=== PATIENT | male | born 1965 | race Caucasian/White ===

== ENCOUNTER → 2020-10-13 18:45 | Outpatient (CLI) | payer OTHER, SELFPAY ==
[2020-10-13 20:10] LABS: COVID19 -Nasal RAPID Negative (Negative)
== END ==
PROVIDERS: PCP Family Medicine; Visit Provider Physician Assistant
DX: J32.9 Chronic sinusitis, unspecified (principal); Z20.822 Contact with and (suspected) exposure to COVID-19
CPT/HCPCS: 87635

== ENCOUNTER → 2020-12-31 08:42 | Outpatient (CLI) | payer OTHER, SELFPAY ==
[2020-12-31 09:33] LABS: Add Manual Diff / Slide Review NO; Basophils Absolute Auto 0 /uL (0-100); Basophils Percent Auto 0.4 % (0-2); Eosinophils Absolute Auto 200 /uL (0-450); Eosinophils Percent Auto 2.6 % (2-4); Hematocrit 48.3 % (41-53); Hemoglobin 16.3 g/dL (13.5-17.5); Lymphocytes Absolute Auto 1900 /uL (1100-4500); Lymphocytes Percent Auto 29.3 % (25-40); Mean Corpuscular HGB Conc 33.8 % (30-36); Mean Corpuscular Hemoglobin 30.8 PG (26-34); Mean Corpuscular Volume 91.1 fL (80-100); Monocytes Absolute Auto 600 /uL (0-900); Monocytes Percent Auto 9.4 % (3-14); Neutrophils Absolute Auto 3800 /uL (1500-7000); Neutrophils Percent Auto 58.3 % (50-75); Platelet Count 232 X10^3/uL (150-400); Red Cell Distribution Width 12.5 % (11.6-14.8); White Blood Cell Count 6.5 X10^3/uL (4.5-11.0)
[2020-12-31 10:01] LABS: Alanine Aminotransferase 44 IU/L (<50); Albumin 4.6 g/dL (3.5-5.0); Albumin Globulin Ratio 1.3 (1.0-2.8); Alkaline Phosphatase 73 U/L (38-126); Aspartate Aminotransferase 40 IU/L (17-59); BUN Creatinine Ratio 22.5 (6-22); Blood Urea Nitrogen 16 mg/dL (9-20); Calcium 9.9 mg/dL (8.4-10.2); Carbon Dioxide 32 mmol/L (22-32); Chloride 101 mmol/L (98-107); Cholesterol 181 mg/dL (140-199); Estimated Glomerular Filt Rate > 60.0 mL/min (>60); Globulin 3.5 g/dL (1.7-4.1); Glucose 104 mg/dL (70-100); HDL Cholesterol 58 mg/dL (40-60); HEMOLYSIS 19 (0-50); Hemoglobin A1C% w Est Avg Glu 5.3 % (4.0-6.0); LDL Cholesterol Calculated 108 mg/dL (<100); Potassium 3.8 mmol/L (3.4-5.1); Sodium 139 mmol/L (137-145); Total Protein 8.1 g/dL (6.3-8.2); Triglycerides 74 mg/dL (35-150)
[2020-12-31 10:14] LABS: Creatinine Urine Random 195.8 mg/dL
[2020-12-31 10:19] LABS: Microalbumi Creatinin Ratio Ur 7.6 ug/mg CR (<30); Microalbumin Urine Random 1.5 mg/dL (0-1.6)
== END ==
PROVIDERS: PCP Family Medicine; Referring Provider Family Medicine; Visit Provider Family Medicine
DX: I10 Essential (primary) hypertension (principal); M26.609 Unspecified temporomandibular joint disorder, unspecified side; M48.00 Spinal stenosis, site unspecified
CPT/HCPCS: 36415; 80053; 80061; 82043; 82570; 83036; 85025

== ENCOUNTER → 2021-01-28 14:25 | Outpatient (CLI) | payer OTHER, SELFPAY ==
[2021-01-28 15:37] LABS: Prostate Specific Antigen Scrn 1.37 ng/mL (0.1-4.0)
== END ==
PROVIDERS: PCP Family Medicine; Referring Provider Family Medicine; Visit Provider Family Medicine
DX: Z12.5 Encounter for screening for malignant neoplasm of prostate (principal)
CPT/HCPCS: 36415; G0103

== ENCOUNTER → 2021-08-12 08:38 | Outpatient (CLI) | payer OTHER, SELFPAY ==
--- NOTE | 2021-08-12 08:40 | DI.US.S_ITS ---
PROCEDURE: US SCROTUM INDICATIONS: TESTICULAR PAIN TECHNIQUE: Real-time scanning was performed of the scrotum and testicles, with image documentation. Color and pulse Doppler interrogation was performed of both testicles. COMPARISON: None. FINDINGS: Right: Testicle is normal in size at 4.2 x 2.9 x 3.5 cm, and homogenous in echotexture. Epididymis is normal in overall size and morphology. There is a small right-sided hydrocele. Overlying scrotal skin is normal in thickness. Left: Testicle is normal in size at 4.2 x 2.3 x 3 cm, and homogeneous in echotexture. Epididymis is normal in overall size and morphology. There is a small to moderate left-sided hydrocele. Overlying scrotal skin is normal in thickness. Doppler: Color and pulse Doppler demonstrate normal and symmetric arterial flow in both testicles. No varicoceles are seen. IMPRESSION: Normal appearing testicles, without masses. Normal appearing, symmetric testicular vascularity. Bilateral hydroceles are seen, left larger than right. Dictated by: Chris Friedman M.D. on 08/12/2021 at 8:34 Approved by: Chris Friedman M.D. on 08/12/2021 at 8:35
[2021-08-12 10:06] LABS: Appearance Urine UA CLEAR; Bilirubin Urine UA NEGATIVE (NEGATIVE); Color Urine UA YELLOW; Glucose Urine UA NEGATIVE (Negative); Ketones Urine UA NEGATIVE (NEGATIVE); Leukocyte Esterase Urine UA NEGATIVE (NEGATIVE); Nitrite Urine UA NEGATIVE (Negative); Occult Blood Urine UA NEGATIVE (Negative); Protein Urine UA NEGATIVE (Negative); Specific Gravity Urine UA 1.015 (1.000-1.035); Urobilinogen Urine UA 0.2 E.U./dL (0.2)
[2021-08-12 10:12] LABS: Bacteria Urine None Seen; Culture Indicated Urine Cult Not Indicated; RBC Urine None Seen (0-5/HPF); Urine Comments Microscopic Normal; WBC Urine None Seen (0-5/HPF)
== END ==
PROVIDERS: PCP Family Medicine; Referring Provider Family Medicine; Visit Provider Family Medicine
DX: N50.819 Testicular pain, unspecified (principal); N43.3 Hydrocele, unspecified
CPT/HCPCS: 76870; 81001

== ENCOUNTER → 2021-08-19 07:15 | Outpatient (CLI) | payer OTHER, SELFPAY ==
--- NOTE | 2021-08-19 07:16 | DI.MRI.S_ITS ---
PROCEDURE: MR LUMBAR SPINE WO CON INDICATIONS: Chronic low back pain not improved with physical therapy TECHNIQUE: Noncontrast sagittal T1 spin echo and T2 fast echo, sagittal STIR, axial T1 and T2 fast spin echo through the lumbar spine. In cases with scoliosis, additional coronal T2 fast spin echo may be performed. COMPARISON: None. FINDINGS: Image quality: Excellent. Alignment and Curvature: There is grade 1 retrolisthesis of L5 on S1 measuring 3 mm. Bone Marrow: Marrow is of normal overall signal. Moderate to severe reactive endplate changes are present at L5-S1. There is mild appearance of increased signal in the distal aspect of the spinous process at L3 and proximal aspect of the spinous process at L2. No acute vertebral body compression fractures. Spinal Cord: Conus medullaris terminates at the L1-2 level. Visualized cord demonstrates normal signal and size. Paraspinous Soft Tissues: No paravertebral masses. Discs: Severe desiccation is present L5-S1, minimal L4-5. L1-L2: No disc bulge, spinal stenosis or foraminal narrowing. L2-L3: No disc bulge, spinal stenosis or foraminal narrowing. Minimal facet and ligamentum flavum hypertrophy. Minimal epidural lipomatosis. L3-L4: Minimal disc bulge without spinal stenosis minimal bilateral foraminal narrowing with facet and ligamentum flavum hypertrophy. L4-L5: Minimal disc bulge without spinal stenosis. Minimal left foraminal narrowing with facet and ligamentum flavum hypertrophy. L5-S1: Mild disc bulge with posterior central protrusion causing indentation of the anterior thecal sac. There is moderate left and moderate to severe right foraminal narrowing with facet and ligamentum flavum hypertrophy. IMPRESSION: Multilevel disc bulges most prominent L5-S1 with posterior central protrusion. Overall minimal to mild foraminal narrowing with most prominent foraminal narrowing, moderate to severe at L5-S1. This is secondary to facet arthropathy with contributing effect of retrolisthesis. Increased signal within the spinous process at L2 and L3. This may represent area of inflammation. However, it is overall nonspecific on the basis of this exam. Further evaluation with bone scan or lumbar spine with contrast is recommended. Dictated by: Karen Pendleton M.D. on 08/19/2021 at 8:53 Approved by: Karen Pendleton M.D. on 08/19/2021 at 9:00
== END ==
PROVIDERS: PCP Family Medicine; Referring Provider Family Medicine; Visit Provider Family Medicine
DX: M51.27 Other intervertebral disc displacement, lumbosacral region (principal); M48.07 Spinal stenosis, lumbosacral region; M47.817 Spondylosis without myelopathy or radiculopathy, lumbosacral region; G89.29 Other chronic pain
CPT/HCPCS: 72148

== ENCOUNTER → 2021-09-01 09:11 | Outpatient (CLI) | payer OTHER, SELFPAY ==
--- NOTE | 2021-09-01 09:12 | DI.NM.S_ITS ---
PROCEDURE: NM BONE SPECT RADIOPHARMACEUTICAL: 20.2 mCi Tc-99m MDP IV. INDICATIONS: increased signal on L2/L3 spinous process TECHNIQUE: Delayed bone scintigrams were obtained of the region of interest 3-4 hours after intravenous administration of Tc-99m MDP. Additional tomographic (SPECT) imaging was performed and displayed in axial, coronal, and sagittal planes. COMPARISON: [facility], MR, MR LUMBAR SPINE WO CON, 08/19/2021, 7:33. FINDINGS: No abnormal uptake in the L2-L3 spinous process area. There is increased activity at L5-S1, correlating with MRI finding of degenerative disc disease. IMPRESSION: 1. No scintigraphic abnormality in the area of the L2-L3 spinous process. 2. Severe degenerative disc disease at L5-S1. Dictated by: Shania Castillo M.D. on 09/01/2021 at 16:21 Approved by: Shania Castillo M.D. on 09/01/2021 at 16:29
== END ==
PROVIDERS: PCP Family Medicine; Referring Provider Family Medicine; Visit Provider Family Medicine
DX: M51.37 Other intervertebral disc degeneration, lumbosacral region (principal); R93.7 Abnormal findings on diagnostic imaging of other parts of musculoskeletal system; M54.50 Low back pain, unspecified; G89.29 Other chronic pain
CPT/HCPCS: 78305; A9503

== ENCOUNTER → 2022-12-22 08:16 | Outpatient (CLI) | payer OTHER, SELFPAY ==
[2022-12-22 08:44] LABS: Add Manual Diff / Slide Review NO; Basophils Absolute Auto 0 /uL (0-100); Basophils Percent Auto 0.5 % (0-2); Eosinophils Absolute Auto 100 /uL (0-450); Eosinophils Percent Auto 2.5 % (2-4); Hematocrit 45.3 % (41-53); Hemoglobin 15.6 g/dL (13.5-17.5); Lymphocytes Absolute Auto 1600 /uL (1100-4500); Lymphocytes Percent Auto 31.4 % (25-40); Mean Corpuscular HGB Conc 34.5 % (30-36); Mean Corpuscular Volume 89.8 fL (80-100); Monocytes Absolute Auto 500 /uL (0-900); Neutrophils Absolute Auto 3000 /uL (1500-7000); Neutrophils Percent Auto 56.6 % (50-75); Platelet Count 234 X10^3/uL (150-400); Red Blood Cell Count 5.04 X10^6/uL (4.5-5.9); Red Cell Distribution Width 12.8 % (11.6-14.8); White Blood Cell Count 5.3 X10^3/uL (4.5-11.0)
[2022-12-22 09:33] LABS: Alanine Aminotransferase 41 IU/L (<50); Albumin 4.3 g/dL (3.5-5.0); Albumin Globulin Ratio 1.5 (1.0-2.8); Alkaline Phosphatase 76 U/L (38-126); Aspartate Aminotransferase 34 IU/L (17-59); BUN Creatinine Ratio 24.1 (6-22); Bilirubin Total 0.7 mg/dL (0.2-1.3); Blood Urea Nitrogen 19 mg/dL (9-20); Calcium 9.4 mg/dL (8.4-10.2); Carbon Dioxide 29 mmol/L (22-32); Chloride 102 mmol/L (98-107); Cholesterol 173 mg/dL (140-199); Estimated Glomerular Filt Rate > 60 mL/min (>60); Globulin 2.8 g/dL (1.7-4.1); Glucose 97 mg/dL (70-100); HDL Cholesterol 57 mg/dL (40-60); HEMOLYSIS < 15 (0-50); LDL Cholesterol Calculated 102 mg/dL (<100); Potassium 4.3 mmol/L (3.4-5.1); Sodium 139 mmol/L (137-145); Total Protein 7.1 g/dL (6.3-8.2); Triglycerides 68 mg/dL (35-150)
[2022-12-22 09:51] LABS: TSH w/ Reflex to FT4 1.37 uIU/mL (0.47-4.68)
[2022-12-22 09:51] LABS: Creatinine Urine Random 187.3 mg/dL
[2022-12-22 09:56] LABS: Microalbumi Creatinin Ratio Ur 3.7 ug/mg CR (<30); Microalbumin Urine Random 0.7 mg/dL (0-1.6)
[2022-12-22 10:00] LABS: Prostate Specific Antigen Scrn 1.88 ng/mL (0.1-4.0)
== END ==
PROVIDERS: PCP Family Medicine; Referring Provider Family Medicine; Visit Provider Family Medicine
DX: E78.2 Mixed hyperlipidemia (principal); I10 Essential (primary) hypertension; Z12.5 Encounter for screening for malignant neoplasm of prostate
CPT/HCPCS: 36415; 80053; 80061; 82043; 82570; 84443; 85025; G0103

== ENCOUNTER 2023-06-15 08:17 | Day surgery (SDC) | payer OTHER, SELFPAY ==
[2023-06-15 08:37] VITALS: BP 139/89; PULSE 61; RESP 17; TEMP 36.1; O2SAT 99; BMI 16.5
--- NOTE | 2023-06-15 09:10 | P.HP_ITS ---
History of Present Illness History of Present Illness Date Patient Seen: 06/15/23 Time Patient Seen: 09:14 Chief complaint: Screening Colonoscopy Narrative: Colon cancer screening, last scope 5 yrs due to h/o colon polyps [facility] Medical History Diverticulitis Spondylolisthesis, lumbar region Spinal stenosis, lumbar Chronic low back pain Hydrocele in adult Hyperlipidemia Spinal stenosis (~1999) Tinnitus (~2017) Colon polyps (~2009) Hypertension (~1999) TMJ dysfunction Sinusitis Surgical History Anesthesia History of tonsillectomy (~1976) Family History Father Hyperlipidemia Hypertension Depression Mother Hyperlipidemia Hypertension Stroke Brother Depression Sister Depression Migraines Grandfather Diabetes mellitus Grandmother Stroke Social History household members: spouse Smoking Status: Never smoker alcohol intake: current Meds Home Medications and Allergies Home Medications Medication Instructions Recorded Confirmed Type duloxetine 20 mg capsule,delayed 20 mg PO DAILY #90 caps 08/17/22 06/15/23 Rx release (Cymbalta) loratadine 10 mg tablet (Claritin) 10 mg PO DAILY 12/29/22 06/15/23 History atorvastatin 10 mg tablet 10 mg PO DAILY #90 tabs 01/04/23 06/15/23 Rx hydrochlorothiazide 25 mg tablet 25 mg PO DAILY #90 tabs 02/26/23 06/15/23 Rx amlodipine 5 mg tablet 5 mg PO DAILY #90 tabs 05/01/23 06/15/23 Rx Allergies Allergy/AdvReac Type Severity Reaction Status Date / Time codeine Allergy Nausea Verified 06/15/23 08:35 erythromycin base Allergy Verified 06/15/23 08:35 Review of Systems Review of Systems ROS: Yes All systems reviewed with the patient and are negative except as otherwise documented Exam Vital Signs (past 8 hours): - 06/15/23 08:37 Temperature 96.9 F L Pulse Rate 61 Respiratory Rate 17 Blood Pressure 139/89 Pulse Oximetry 99 Oxygen Delivery Method Room Air Oxygen Delivery Method Room Air Const General: cooperative and healthy appearing Nutritional Appearance: average body habitus HENMT Head: normocephalic and atraumatic Eyes General: appearance normal, both eyes and all related structures Neck Neck: trachea midline Chest Chest: normal inspection of the chest and normal palpation of entire chest wall Resp Effort & Inspection: normal respiratory effort and able to speak in complete sentences Cardio Rate: regular rate Rhythm: regular rhythm Skin General: elasticity normal Neuro General: patient alert, patient awake and patient oriented x3 Cognition: normal cognition Extrem General: normal to inspection Psych Mental Status: mental status grossly normal Judgment: judgment good Assessment & Plan Assessment & Plan narrative: History of colon polyps Plan: Colonoscopy with anesthesia Time Spent With Patient Time with patient: less than 30 minutes
--- NOTE | 2023-06-15 09:10 | PM.OP.COLON ---
Operative Date/Time/Diagnoses Date of procedure: 06/15/23 Time of procedure: 09:38 Pre-op diagnosis: History of colon polyps Post-op diagnosis: same Procedure & Clinicians Study performed: Colonoscopy with anesthesia Same procedure as scheduled: Yes Indications: History of colon polyps Surgeon: Court Garay Procedure Notes Procedure in detail: Preop diagnosis: History of colon polyps Postop diagnosis: Same Operative procedure: Colonoscopy with anesthesia Surgeon: Kaitlin Garay MD Findings: Normal colonoscopy. No polyps, no diverticulosis Procedure: Patient placed in the lateral position. Rectal exam performed showing normal tone no masses. Colonoscope inserted into the rectum and advanced to ileocecal valve with minimal difficulty. Insufflation extraction scope and the above findings. Retroflex was included in the rectum. Impression: Normal colon. No polyps Plan repeat colonoscopy in 5 years due to his history of colon polyps Specimen(s): none sent Complications: none Post-procedure Recommendations: Colonoscopy in 5 years Follow up: as needed Disposition: PACU
[2023-06-15] MEDS: LACTATED RINGERS 1,000 ML 42 ML IV (09:29)
[2023-06-15 09:41] VITALS: BP 102/61; PULSE 60; RESP 16; TEMP 36.2; O2SAT 94
[2023-06-15 09:46] VITALS: BP 91/57; PULSE 56; RESP 16; O2SAT 95
[2023-06-15 09:51] VITALS: BP 103/72; PULSE 58; RESP 18; TEMP 36.2; O2SAT 94
[2023-06-15 09:56] VITALS: BP 105/72; PULSE 60; RESP 16; TEMP 36.2; O2SAT 99
== END 2023-06-15 10:05 | disposition home or self-care (01) ==
PROVIDERS: PCP Family Medicine; Referring Provider Surgery; Visit Provider Surgery
PROC: 0DJD8ZZ Inspection of Lower Intestinal Tract, Via Natural or Artificial Opening Endoscopic (ICD-10-PCS; CPT 45378; principal; 2023-06-15 09:15)
DX: Z12.11 Encounter for screening for malignant neoplasm of colon (principal); Z86.010 Personal history of colon polyps
CPT/HCPCS: 45378

== ENCOUNTER → 2024-03-25 08:12 | Outpatient (CLI) | payer OTHER, SELFPAY ==
[2024-03-25 08:53] LABS: Add Manual Diff / Slide Review NO; Basophils Absolute Auto 0 /uL (0-100); Basophils Percent Auto 0.6 % (0-2); Eosinophils Absolute Auto 100 /uL (0-450); Eosinophils Percent Auto 2.3 % (2-4); Hematocrit 46.3 % (41-53); Hemoglobin 15.8 g/dL (13.5-17.5); Lymphocytes Absolute Auto 1600 /uL (1100-4500); Lymphocytes Percent Auto 25.5 % (25-40); Mean Corpuscular HGB Conc 34.2 % (30-36); Mean Corpuscular Hemoglobin 31.1 PG (26-34); Mean Corpuscular Volume 90.8 fL (80-100); Monocytes Absolute Auto 500 /uL (0-900); Monocytes Percent Auto 7.8 % (3-14); Neutrophils Absolute Auto 4000 /uL (1500-7000); Neutrophils Percent Auto 63.8 % (50-75); Platelet Count 216 X10^3/uL (150-400); Red Cell Distribution Width 12.5 % (11.6-14.8); White Blood Cell Count 6.3 X10^3/uL (4.5-11.0)
[2024-03-25 09:12] LABS: Alanine Aminotransferase 33 IU/L (<50); Albumin 4.2 g/dL (3.5-5.0); Albumin Globulin Ratio 1.7 (1.0-2.8); Alkaline Phosphatase 70 U/L (38-126); Aspartate Aminotransferase 31 IU/L (17-59); BUN Creatinine Ratio 22.5 (6-22); Blood Urea Nitrogen 18 mg/dL (9-20); Calcium 9.5 mg/dL (8.4-10.2); Carbon Dioxide 30 mmol/L (22-32); Chloride 103 mmol/L (98-107); Cholesterol 151 mg/dL (140-199); Estimated Glomerular Filt Rate > 60 mL/min (>60); Globulin 2.5 g/dL (1.7-4.1); Glucose 100 mg/dL (70-100); HDL Cholesterol 54 mg/dL (40-60); HEMOLYSIS < 15 (0-50); LDL Cholesterol Calculated 84 mg/dL (<100); Potassium 4.2 mmol/L (3.4-5.1); Sodium 140 mmol/L (137-145); Total Protein 6.7 g/dL (6.3-8.2); Triglycerides 65 mg/dL (35-150)
[2024-03-25 09:38] LABS: Prostate Specific Antigen 1.34 ng/mL (0.10-4.00)
== END ==
PROVIDERS: PCP Family Medicine; Referring Provider Family Medicine; Visit Provider Family Medicine
DX: E78.2 Mixed hyperlipidemia (principal); I10 Essential (primary) hypertension; Z12.5 Encounter for screening for malignant neoplasm of prostate; J32.9 Chronic sinusitis, unspecified
CPT/HCPCS: 36415; 80053; 80061; 84153; 85025

== ENCOUNTER → 2024-04-09 09:16 | Outpatient (CLI) | payer OTHER, SELFPAY ==
--- NOTE | 2024-04-09 09:17 | DI.RAD.S_ITS ---
PROCEDURE: XR LUMBAR SPINE MIN 4V INDICATIONS: BACK PAIN TECHNIQUE: 5 views of the lumbar spine were acquired, including bilateral oblique views. COMPARISON: None. FINDINGS: Bones: 5 nonrib-bearing vertebrae are present. Slight rightward curvature of the spine, centered at L3. No vertebral body compression fractures. No suspicious bony lesions. Moderate disc height loss at L5-S1. Mild disc height loss at remaining levels. Opposing endplate sclerosis at L5-S1. Facet arthrosis L4-5 and L5-S1. Soft tissues: Overlying bowel gas pattern is normal. No suspicious soft tissue calcifications. Oblique images: No pars defects. IMPRESSION: Mild to moderate, multilevel degenerative disc disease and lower lumbar facet arthrosis. Dictated by: Neo Weaver M.D. on 04/09/2024 at 10:41 Approved by: Neo Weaver M.D. on 04/09/2024 at 10:43
--- NOTE | 2024-04-09 09:17 | DI.RAD.S_ITS ---
PROCEDURE: XR HIP W PEL IF DONE STEPHIE MIN 4V INDICATIONS: LEFT HIP PAIN TECHNIQUE: AP pelvis with lateral view(s) of the both hip(s). COMPARISON: None. FINDINGS: Bones: No fractures or dislocations. Pelvic ring appears intact. No suspicious bony lesions. Nonuniform joint space narrowing and osteophytic lipping of the acetabuli. Soft tissues: The visualized bowel gas pattern is normal. No suspicious soft tissue calcifications. Vasectomy clips. IMPRESSION: Mild bilateral hip osteoarthritis. Dictated by: Neo Weaver M.D. on 04/09/2024 at 10:43 Approved by: Neo Weaver M.D. on 04/09/2024 at 10:43
--- NOTE | 2024-04-09 09:17 | DI.RAD.S_ITS ---
PROCEDURE: XR CERVICAL SPINE 4V OR 5V INDICATIONS: NECK PAIN TECHNIQUE: 5 views of the cervical spine acquired. COMPARISON: None. FINDINGS: Bones: No fractures or dislocations to the T1 level. Oblique images demonstrate no bony foraminal stenoses. Moderate disc height loss at C4-5, C5-6, C6-7. Reversal of the normal cervical lordosis. Diffuse facet arthrosis. Mild neural foraminal narrowing of the bilateral C4-5, C5-6, C6-7 vertebral bodies. Soft tissues: No prevertebral soft tissue swelling. IMPRESSION: Mild to moderate, multilevel degenerative disc disease and diffuse facet arthrosis. Dictated by: Neo Weaver M.D. on 04/09/2024 at 10:45 Approved by: Neo Weaver M.D. on 04/09/2024 at 10:46
== END ==
PROVIDERS: PCP Family Medicine; Referring Provider Physical Medicine & Rehabilitation; Visit Provider Physical Medicine & Rehabilitation
DX: M50.321 Other cervical disc degeneration at C4-C5 level (principal); M48.02 Spinal stenosis, cervical region; M47.812 Spondylosis without myelopathy or radiculopathy, cervical region; M16.0 Bilateral primary osteoarthritis of hip; M47.816 Spondylosis without myelopathy or radiculopathy, lumbar region; M47.817 Spondylosis without myelopathy or radiculopathy, lumbosacral region; M51.36 Other intervertebral disc degeneration, lumbar region; M51.37 Other intervertebral disc degeneration, lumbosacral region; M43.16 Spondylolisthesis, lumbar region; M48.061 Spinal stenosis, lumbar region without neurogenic claudication; M54.2 Cervicalgia; M25.552 Pain in left hip
CPT/HCPCS: 72050; 72110; 73522

== ENCOUNTER → 2024-04-28 08:45 | Outpatient (CLI) | payer OTHER, SELFPAY ==
--- NOTE | 2024-04-28 08:46 | DI.MRI.S_ITS ---
PROCEDURE: MR THORACIC SPINE WO CON INDICATIONS: Thoracic syringomyelia TECHNIQUE: Noncontrast sagittal T1 spine echo and T2 fast spin echo, sagittal STIR, and T2 fast spin echo through the thoracic spine. COMPARISON: [facility], MR, MR LUMBAR SPINE WO CON, 08/19/2021, 7:33. [facility], MR, MR CERVICAL SPINE WO CON, 04/28/2024, 8:50. FINDINGS: Image quality: Excellent. Alignment and Curvature: There is normal bony alignment. Bone Marrow: Marrow is of normal overall signal. No acute vertebral body compression fractures. Spinal Cord: There is prominence of the central canal of the spinal cord seen, which is best demonstrated on series 4, image 8, extending from the superior T4 level through the superior T7 level. This measures up to 3 mm in greatest axial dimension. Visualized spinal cord is otherwise normal in size and signal. Paraspinous Soft Tissues: No paravertebral masses. Miscellaneous: A few levels of mild neural foraminal narrowing can be seen within the mid to lower thoracic spine. No central canal narrowing is seen. IMPRESSION: Prominence of the central canal of the thoracic cord can be seen, which extends from T4 through T7, measuring up to 3 mm in greatest axial dimension. Dictated by: Chris Friedman M.D. on 04/28/2024 at 10:11 Approved by: Chris Friedman M.D. on 04/28/2024 at 10:15
--- NOTE | 2024-04-28 08:46 | DI.MRI.S_ITS ---
PROCEDURE: MR CERVICAL SPINE WO CON INDICATIONS: Right C6-7 radiculopathy TECHNIQUE: Noncontrast sagittal T1 spin echo and T2 fast spin echo, sagittal STIR, foraminal oblique sagittal T2 fast spin echo, and axial gradient echo or T2 fast spin echo through the cervical spine. COMPARISON: [facility], CR, XR CERVICAL SPINE 4V OR 5V, 04/09/2024, 9:23. [facility], MR, MR THORACIC SPINE WO CON, 04/28/2024, 8:50. FINDINGS: Image quality: Excellent. Alignment and Curvature: There is normal bony alignment. Bone Marrow: Marrow demonstrates normal overall signal. Spinal Cord: Visualized spinal cord has normal size and signal. No cerebellar tonsillar herniation. Paraspinous Soft Tissues: No paravertebral masses. Prevertebral soft tissues are normal in thickness. C2-C3: The disc height and disk signal are relatively well-preserved. A mild degree of generalized disc osteophyte complex is seen. There is mild left-sided and no right-sided neural foraminal narrowing. No central canal narrowing is seen. C3-C4: The disc height is well-preserved. Loss of disc signal is seen at this level. A mild degree of generalized disc osteophyte complex is seen. Moderate bilateral neural foraminal narrowing can be seen, right worse than left. C4-C5: [id number] loss of disc height and disc signal can be seen. Moderate disc osteophyte complex is seen, which is eccentric to the right. Mild facet joint hypertrophy is seen. There is at least moderate bilateral neural foraminal narrowing seen, right worse than left. Moderate central canal narrowing is seen, with minimal associated mass effect upon the ventral spinal cord. C5-C6: Moderate loss of disc height is seen. Loss of disc signal is seen. Moderate generalized disc osteophyte complex is seen. There is a central disc osteophyte protrusion. Uncovertebral joint hypertrophy is seen at this level. Moderate central canal narrowing is seen. There is associated mass effect upon the ventral spinal cord. C6-C7: Moderate loss of disc height is seen. Loss of disc signal is seen. Mild to moderate disc osteophyte complex is seen, which is eccentric to the right. Mild facet joint hypertrophy is seen. There is moderate to severe bilateral neural foraminal narrowing, right worse than left. Mild to moderate central canal narrowing is seen. C7-T1: No significant abnormality is seen. IMPRESSION: Multiple levels of cervical spine degenerative change can be seen, which are worst at the C5-C6 level. Dictated by: Chris Friedman M.D. on 04/28/2024 at 10:15 Approved by: Chris Friedman M.D. on 04/28/2024 at 10:18
== END ==
PROVIDERS: PCP Family Medicine; Referring Provider Physical Medicine & Rehabilitation; Visit Provider Physical Medicine & Rehabilitation
DX: M54.16 Radiculopathy, lumbar region; G95.0 Syringomyelia and syringobulbia; M47.814 Spondylosis without myelopathy or radiculopathy, thoracic region; M47.22 Other spondylosis with radiculopathy, cervical region
CPT/HCPCS: 72141; 72146

== ENCOUNTER → 2024-05-21 09:18 | Outpatient (CLI) | payer OTHER, SELFPAY ==
--- NOTE | 2024-05-21 09:19 | DI.MRI.S_ITS ---
PROCEDURE: MR LUMBAR SPINE WO CON INDICATIONS: Lumbar radic TECHNIQUE: Noncontrast sagittal T1 spin echo and T2 fast echo, sagittal STIR, and T2 fast spin echo through the lumbar spine. In cases with scoliosis, additional coronal T2 fast spin echo may be performed. COMPARISON: [facility], MR, MR LUMBAR SPINE WO CON, 08/19/2021, 7:33. FINDINGS: Image quality: Excellent. Alignment and Curvature: Straightening of the normal lumbar lordosis. Mild retrolisthesis of L5 on S1. Bone Marrow: Multilevel degenerative endplate changes, most pronounced at L5-S1. Marrow is of normal overall signal. No acute vertebral body compression fractures. Spinal Cord: Conus medullaris terminates at the L2 level. Visualized cord demonstrates normal signal and size. Paraspinous Soft Tissues: No paravertebral masses. T12-L1: Disc desiccation and small right paracentral posterior disc protrusion is new from prior. No significant central canal or neural foraminal stenosis. L1-L2: Mild facet arthropathy. No central canal or neural foraminal stenosis. L2-L3: Mild facet arthropathy. No central canal or neural foraminal stenosis. L3-L4: Disc desiccation. Mild facet arthropathy. No central canal or neural foraminal stenosis. L4-L5: Disc desiccation and diffuse disc bulge. New superimposed central disc extrusion extending inferiorly resulting in mild central canal stenosis. Facet arthropathy. Mild bilateral neural foraminal stenosis is mildly progressed from prior. L5-S1: Disc desiccation is severe disc height loss. Mild facet arthropathy. Small posterior central disc protrusion is decreased in size compared to prior. No significant central canal stenosis. Moderate left and moderate to severe right neural foraminal stenosis is stable. IMPRESSION: 1. Multilevel degenerative changes of the lumbar spine as described above. 2. New disc extrusion at L4-5 extending inferiorly resulting in mild central canal stenosis and narrowing of the bilateral lateral recesses with possible impingement of the descending L5 nerve roots. 3. Improvement in disc protrusion L5-S1. Stable moderate left and moderate to severe right neural foraminal stenosis at this level. 4. New disc protrusion at T12-L1 without significant central or neural foraminal stenosis. Dictated by: Gael Ackerman M.D. on 05/21/2024 at 13:02 Approved by: Gael Ackerman M.D. on 05/21/2024 at 13:11
== END ==
LOC: MRI 09:19
PROVIDERS: PCP Family Medicine; Referring Provider Physical Medicine & Rehabilitation; Visit Provider Physical Medicine & Rehabilitation
DX: M51.16 Intervertebral disc disorders with radiculopathy, lumbar region (principal); M51.17 Intervertebral disc disorders with radiculopathy, lumbosacral region; M48.061 Spinal stenosis, lumbar region without neurogenic claudication; M48.07 Spinal stenosis, lumbosacral region; M47.26 Other spondylosis with radiculopathy, lumbar region; M47.27 Other spondylosis with radiculopathy, lumbosacral region
CPT/HCPCS: 72148

== ENCOUNTER → 2024-09-06 08:15 | Outpatient (CLI) | payer OTHER, SELFPAY ==
[2024-09-06 09:16] LABS: Add Manual Diff / Slide Review NO; Basophils Absolute Auto 0 /uL (0-100); Basophils Percent Auto 0.7 % (0-2); Eosinophils Absolute Auto 100 /uL (0-450); Hematocrit 48.5 % (41-53); Hemoglobin 16.5 g/dL (13.5-17.5); Lymphocytes Absolute Auto 1500 /uL (1100-4500); Lymphocytes Percent Auto 24.3 % (25-40); Mean Corpuscular Volume 91.1 fL (80-100); Monocytes Absolute Auto 600 /uL (0-900); Neutrophils Absolute Auto 4000 /uL (1500-7000); Platelet Count 217 X10^3/uL (150-400); Red Blood Cell Count 5.32 X10^6/uL (4.5-5.9); Red Cell Distribution Width 12.6 % (11.6-14.8); White Blood Cell Count 6.3 X10^3/uL (4.5-11.0)
[2024-09-06 09:49] LABS: Alanine Aminotransferase 94 IU/L (<50); Albumin 4.3 g/dL (3.5-5.0); Albumin Globulin Ratio 1.7 (1.0-2.8); Alkaline Phosphatase 64 U/L (38-126); Aspartate Aminotransferase 56 IU/L (17-59); Bilirubin Total 0.8 mg/dL (0.2-1.3); Blood Urea Nitrogen 20 mg/dL (9-20); Calcium 9.5 mg/dL (8.4-10.2); Carbon Dioxide 30 mmol/L (22-32); Chloride 104 mmol/L (98-107); Estimated Glomerular Filt Rate > 60 mL/min (>60); Globulin 2.5 g/dL (1.7-4.1); Glucose 100 mg/dL (70-100); HEMOLYSIS < 15 (0-50); Potassium 4.2 mmol/L (3.4-5.1); Sodium 139 mmol/L (137-145); Total Protein 6.8 g/dL (6.3-8.2)
== END ==
LOC: LAB 08:16
PROVIDERS: PCP Family Medicine; Referring Provider Family Medicine; Visit Provider Family Medicine
DX: K57.92 Diverticulitis of intestine, part unspecified, without perforation or abscess without bleeding (principal)
CPT/HCPCS: 36415; 80053; 85025

== ENCOUNTER → 2024-09-07 09:24 | Outpatient (CLI) | payer OTHER, SELFPAY ==
--- NOTE | 2024-09-07 09:26 | DI.CT.S_ITS ---
PROCEDURE: CT ABDOMEN PELVIS W CON INDICATIONS: DIVERTICULITIS TECHNIQUE: After the administration of intravenous contrast, axial sections acquired from the lung bases to the pubic symphysis. Coronal and sagittal reformats were performed. For radiation dose reduction, the following was used: automated exposure control, adjustment of mA and/or kV according to patient size. COMPARISON: None. FINDINGS: Image quality: Diagnostic Lower chest: Basal atelectasis. Heart size is at the upper limit of normal. Liver: There are numerous presumed cysts. Subcentimeter lesions are too small to characterize, most commonly also cysts Gallbladder and biliary system: Unremarkable, nondilated Pancreas: No ductal dilation Spleen: Nonenlarged Adrenals: No discrete nodules Kidneys: No solid mass or hydronephrosis Vessels and lymph nodes: The main portal vein is patent. No abdominal aortic aneurysm. There are mild atherosclerotic calcifications. No pathologic lymphadenopathy by size criteria Bowel and peritoneum: No small bowel obstruction. There is moderate fecal loading in the colon. No pathologic ascites or drainable abscess. Diverticulosis is most significant in the sigmoid, with wall thickening throughout the distal colon Body wall: Scrotal postsurgical changes. Pelvis: Bladder is unremarkable. Heterogeneous prostate enhancement, nonspecific, not well assessed on CT Bones: Unremarkable osseous structures. Lumbosacral mild degenerative changes. IMPRESSION: Distal colonic diverticula with wall thickening, favored to represent chronic diverticular disease versus superimposed colitis. Given reported history of diverticulitis, colonoscopy correlation is suggested. No abscess or ascites. No bowel obstruction. Other findings above. Dictated by: Patrick Baumann M.D. on 09/07/2024 at 17:14 Approved by: Patrick Baumann M.D. on 09/07/2024 at 17:19
== END ==
PROVIDERS: PCP Family Medicine; Referring Provider Family Medicine; Visit Provider Family Medicine
DX: K57.92 Diverticulitis of intestine, part unspecified, without perforation or abscess without bleeding (principal); M47.817 Spondylosis without myelopathy or radiculopathy, lumbosacral region
CPT/HCPCS: 74177; Q9967